=== PATIENT | female | born 1980 | race Two or more races ===

== ENCOUNTER → 2024-09-02 | Outpatient (CLI) | payer MEDICAID, SELFPAY ==
--- NOTE | 2024-09-02 16:00 | XR_ITS ---
Examination: Breast ultrasound, unilateral, left complete Date and time of exam: September 02, 2024 1621 hours INDICATIONS: Left breast tenderness beginning one week ago, mammogram July 01, 2024 10 mm nodule retroareolar region left breast Technique: Real-time cotton scale ultrasonographic imaging performed left breast including all 4 quadrants as well as nipple retroareolar and axillary region. Findings: Retroareolar oval mass lobular margins which appears intraductal, 14 x 7 x 11 mm Retroareolar oval mass which appears intraductal 6 x 4 x 5 mm IMPRESSION: BI-RADS Category 4: Suspicious for malignancy Recommend biopsy of both intraductal masses retroareolar region left breast to exclude breast carcinoma, these lesions are amenable to ultrasound-guided breast biopsy for diagnosis
== END | disposition home or self-care (01) ==
LOC: CDIM 15:58
PROVIDERS: Referring Provider Nurse Practitioner; Visit Provider Nurse Practitioner
DX: N63.42 Unspecified lump in left breast, subareolar (principal)
CPT/HCPCS: 76641

== ENCOUNTER → 2024-12-01 | Outpatient (CLI) | payer MEDICAID, SELFPAY ==
[2024-11-30 13:41] LABS: Partial Thromboplastin Time 27.1 Seconds (22.0-36.0); Prothrombin Time 10.7 Seconds (9.0-12.2)
[2024-11-30 13:50] LABS: Basophils # (Auto) 0.1 Thou/mm3 (0.0-0.2); Basophils % (Auto) 1 % (0-2.5); Eosinophils # (Auto) 0.1 Thou/mm3 (0.0-0.5); Eosinophils % (Auto) 1 % (0-10); Hematocrit 42.7 % (36.0-46.0); Hemoglobin 14.5 g/dL (12.0-16.0); Immature Granulocytes % (Auto) 0 % (0-0); Immature Granulocytes Auto 0.03 Thou/mm3 (0.00-0.00); Lymphocytes # (Auto) 2.7 Thou/mm3 (1.0-4.8); Lymphocytes % (Auto) 32 % (10-50); Mean Corpuscular Hemoglobin 30.1 pg (25.0-35.0); Mean Corpuscular Volume 89 fL (80-100); Monocytes # (Auto) 0.4 Thou/mm3 (0.0-0.8); Monocytes % (Auto) 4 % (0-12); Neutrophils # (Auto) 5.3 Thou/mm3 (1.8-7.7); Neutrophils % (Auto) 62 % (37-80); Nucleated Red Blood Cell % 0 /100 WBC (0); Platelet Count 317 Thou/mm3 (140-440); Red Blood Count 4.82 Miln/mm3 (4.00-5.20); White Blood Count 8.6 Thou/mm3 (3.6-11.0)
[2024-11-30 13:51] LABS: HCG,Qualitative Serum Negative
--- NOTE | 2024-12-01 | XR_ITS ---
Examinations: Ultrasound-guided percutaneous breast biopsy, left breast 3:00 nodule Left breast sonography limited INDICATIONS: Left breast sonogram September 02, 2024 BI-RADS 4 suspicious nodule 3:00 position left breast. Exam date and time: December 01, 2024 0904 hours. Informed consent provided. Technique: A timeout was completed verifying correct patient, procedure, site, positioning, and special equipment if applicable Informed consent provided. The patient was placed in a supine position for the breast biopsy. Sonographic images of the breast were performed for localization of the suspicious nodule The patient's breast was prepped and draped in sterile fashion. Maximum sterile barrier technique, hand hygiene, ultrasound sterile technique 1% lidocaine was used to anesthetize the skin and breast adjacent to the suspicious nodule. Utilizing ultrasonographic guidance, 8 core biopsies were obtained of the suspicious nodule utilizing an 18-gauge BioPince needle. The specimens appears satisfactory. Estimated blood loss 3 cc. The patient tolerated the procedure well and there were no complications. Impression: Successful ultrasound-guided percutaneous breast biopsy, left breast 3:00 nodule.
--- NOTE | 2024-12-01 08:30 | XR_ITS ---
Examinations: Ultrasound-guided percutaneous breast biopsy, left breast retroareolar nodule Left breast sonography limited INDICATIONS: BI-RADS 4 suspicious nodule retroareolar region left breast on breast sonogram September 02, 2024. Exam date and time: December 01, 2024 0909 hours. Informed consent provided. Technique: A timeout was completed verifying correct patient, procedure, site, positioning, and special equipment if applicable Informed consent provided. The patient was placed in a supine position for the breast biopsy. Sonographic images of the breast were performed for localization of the suspicious nodule The patient's breast was prepped and draped in sterile fashion. Maximum sterile barrier technique, hand hygiene, ultrasound sterile technique 1% lidocaine was used to anesthetize the skin and breast adjacent to the suspicious nodule. Utilizing ultrasonographic guidance, 8 core biopsies were obtained of the suspicious nodule utilizing an 18-gauge BioPince needle. The specimens appears satisfactory. . Estimated blood loss 3 cc. The patient tolerated the procedure well and there were no complications. Impression: Successful ultrasound-guided percutaneous breast biopsy, left breast retroareolar nodule.
== END | disposition home or self-care (01) ==
LOC: SDIM 08:16 → SIRX 08:50
PROVIDERS: Radiology Diagnostic Radiology; PCP Physician Assistant; Referring Provider Physician Assistant; Visit Provider Physician Assistant
DX: D24.2 Benign neoplasm of left breast (principal); Z01.812 Encounter for preprocedural laboratory examination
CPT/HCPCS: 19083; 19084; 36415; 84703; 85025; 85610; 85730